=== PATIENT | male | born 1980 | race Caucasian/White ===

== ENCOUNTER 2017-04-04 13:23 | Emergency (ER) | payer OTHER ==
[~2017-04-04] VITALS: Ht 172.7 cm; Wt 79.0 kg
[2017-04-04 17:16] VITALS: BP 112/78
== END 2017-04-04 17:17 | disposition home or self-care (01) ==
LOC: ER 14:31
DX: R22.41 Localized swelling, mass and lump, right lower limb (principal); F17.200 Nicotine dependence, unspecified, uncomplicated
CPT/HCPCS: 93971; 99284